=== PATIENT | female | born 1995 | race African-American/Black ===

== ENCOUNTER 2023-10-20 12:41 | Emergency (ER) | payer MEDICAID ==
[~2023-10-20] VITALS: Ht 188 cm; Wt 123.0 kg
[2023-10-20 12:59] VITALS: O2SAT 98
[2023-10-20 13:16] LABS: BASOPHILS % 0.6 % (0.0-2.0); EOSINOPHILS % 1.7 % (0.0-5.0); HEMATOCRIT. 37.8 % (36.0-48.0); HEMOGLOBIN. 12.5 g/dL (12.0-16.0); MEAN CORPUSCULAR HEMOGLOBIN 28.3 pg (28.0-32.0); MEAN CORPUSCULAR HGB CONC 33.1 g/dL (31.0-37.0); MEAN CORPUSCULAR VOLUME 85.5 fL (81.0-99.0); MEAN PLATELET VOLUME 7.9 fl (7.4-10.4); MONOCYTES % 7.7 % (2.0-8.0); PLATELET 360 x1000/uL (130-400); RED BLOOD CELL COUNT 4.42 mill/uL (4.2-5.4); RED CELL DISTRIBUTION WIDTH 13.5 % (11.6-14.6); WHITE BLOOD COUNT 6.7 x1000/uL (4.5-11.0)
[2023-10-20 13:29] LABS: CHLORIDE 106 mEq/L (98-107); POTASSIUM 3.9 mEq/L (3.5-5.1); SODIUM 142 mEq/L (136-145)
[2023-10-20 13:30] LABS: CARBON DIOXIDE 29 mEq/L (21-32)
[2023-10-20 13:35] LABS: GLUCOSE 71 mg/dL (70-105)
[2023-10-20 13:36] LABS: UREA NITROGEN BLOOD 10 mg/dL (9-23)
[2023-10-20 13:41] LABS: HCG SCREEN NEGATIVE
[2023-10-20 13:44] LABS: TROPONIN I HIGH SENSITIVITY < 4 ng/L (3.0-34)
[2023-10-20 15:30] VITALS: BP 128/77; PULSE 100; RESP 16; TEMP 98.2
== END 2023-10-20 15:30 | disposition home or self-care (01) ==
LOC: ER 12:41
DX: R07.89 Other chest pain (principal); R53.83 Other fatigue; I10 Essential (primary) hypertension; Z88.0 Allergy status to penicillin; Z98.890 Other specified postprocedural states
CPT/HCPCS: 36415; 71045; 80048; 84484; 84703; 85025; 99284

== ENCOUNTER 2024-01-06 19:18 | Emergency (ER) | payer MEDICAID ==
[~2024-01-06] VITALS: Ht 182.9 cm; Wt 118.0 kg
[2024-01-06 19:20] VITALS: O2SAT 99
[2024-01-06 19:34] VITALS: BP 166/111; PULSE 86; RESP 18; TEMP 98; O2SAT 100
[2024-01-06] MEDS ORDERED: ASPIRIN 81MG TABLET PO ONE (22:00)
[2024-01-06 23:11] LABS: BASOPHILS % 0.3 % (0.0-2.0); EOSINOPHILS % 1.1 % (0.0-5.0); HEMATOCRIT. 36.2 % (36.0-48.0); LYMPHOCYTES % 23.7 % (20.0-50.0); MEAN CORPUSCULAR VOLUME 87.9 fL (81.0-99.0); MONOCYTES % 7.9 % (2.0-8.0); PLATELET 328 x1000/uL (130-400); RED BLOOD CELL COUNT 4.12 mill/uL (4.2-5.4); RED CELL DISTRIBUTION WIDTH 14.2 % (11.6-14.6); WHITE BLOOD COUNT 7.5 x1000/uL (4.5-11.0)
[2024-01-06 23:18] LABS: CHLORIDE 102 mEq/L (98-107); POTASSIUM 3.5 mEq/L (3.5-5.1); SODIUM 134 mEq/L (136-145)
[2024-01-06 23:19] LABS: CARBON DIOXIDE 23 mEq/L (21-32)
[2024-01-06 23:24] LABS: CREATININE 0.9 mg/dL (0.6-1.0); GLUCOSE 75 mg/dL (70-105); UREA NITROGEN BLOOD 9 mg/dL (9-23)
[2024-01-06 23:27] LABS: TROPONIN I HIGH SENSITIVITY < 4 ng/L (3.0-34)
[2024-01-06 23:30] LABS: HCG SCREEN NEGATIVE
== END 2024-01-06 23:47 | disposition left against medical advice (07) ==
LOC: ER 19:18
DX: I10 Essential (primary) hypertension (principal); R07.89 Other chest pain; Z88.0 Allergy status to penicillin; Z98.890 Other specified postprocedural states
CPT/HCPCS: 36415; 71045; 80048; 84484; 84703; 85025; 99284

== ENCOUNTER 2024-01-07 12:18 | Emergency (ER) | payer MEDICAID ==
[~2024-01-07] VITALS: Ht 180.3 cm; Wt 114.0 kg
[2024-01-07 12:22] VITALS: O2SAT 98
[2024-01-07 12:33] VITALS: BP 123/73; PULSE 104; RESP 18; TEMP 98.4; O2SAT 96
[2024-01-07 13:20] LABS: CHLORIDE 106 mEq/L (98-107); SODIUM 137 mEq/L (136-145)
[2024-01-07 13:21] LABS: CALCIUM 10.1 mg/dL (8.7-10.4); CARBON DIOXIDE 24 mEq/L (21-32)
[2024-01-07 13:26] LABS: CREATININE 0.9 mg/dL (0.6-1.0); GLUCOSE 75 mg/dL (70-105); UREA NITROGEN BLOOD 12 mg/dL (9-23)
[2024-01-07 13:32] LABS: BASOPHILS % 0.5 % (0.0-2.0); EOSINOPHILS % 0.9 % (0.0-5.0); HEMATOCRIT. 37.8 % (36.0-48.0); HEMOGLOBIN. 12.1 g/dL (12.0-16.0); MEAN CORPUSCULAR HEMOGLOBIN 27.9 pg (28.0-32.0); MEAN CORPUSCULAR HGB CONC 32.1 g/dL (31.0-37.0); MEAN CORPUSCULAR VOLUME 86.9 fL (81.0-99.0); MEAN PLATELET VOLUME 8.2 fl (7.4-10.4); MONOCYTES % 9.1 % (2.0-8.0); NEUTROPHILS % 71.5 % (40.0-76.0); PLATELET 344 x1000/uL (130-400); RED BLOOD CELL COUNT 4.35 mill/uL (4.2-5.4); RED CELL DISTRIBUTION WIDTH 14.1 % (11.6-14.6); WHITE BLOOD COUNT 8.1 x1000/uL (4.5-11.0)
== END 2024-01-07 13:08 | disposition home or self-care (01) ==
LOC: ER 12:18
DX: I10 Essential (primary) hypertension (principal); Z88.0 Allergy status to penicillin; Z98.890 Other specified postprocedural states
CPT/HCPCS: 36415; 80048; 85025; 99283

== ENCOUNTER 2024-03-30 22:12 | Emergency (ER) | payer MEDICAID ==
[~2024-03-30] VITALS: Ht 182.9 cm; Wt 117.0 kg
[2024-03-30 22:37] VITALS: O2SAT 98
[2024-03-30 23:08] VITALS: TEMP 97.9; O2SAT 99
[2024-03-31] MEDS ORDERED: IBUP-2029 MT (04:55)
[2024-03-31 05:00] VITALS: BP 179/99; PULSE 91; RESP 16
[2024-03-31] MEDS: IBUPROFEN 600MG TABLET PO ONE (05:00)
== END 2024-03-31 05:07 | disposition home or self-care (01) ==
LOC: ER 22:12
DX: S00.83XA Contusion of other part of head, initial encounter (principal); R51.9 Headache, unspecified; I10 Essential (primary) hypertension; Z98.890 Other specified postprocedural states; Z88.0 Allergy status to penicillin; Y04.0XXA Assault by unarmed brawl or fight, initial encounter; Y93.89 Activity, other specified; Y92.89 Other specified places as the place of occurrence of the external cause; Y99.8 Other external cause status
CPT/HCPCS: 99282